=== PATIENT | male | born 1980 | race African-American/Black ===

== ENCOUNTER 2017-05-03 08:47 | Emergency (ER) | payer OTHER ==
[2017-05-03] MEDS ORDERED: Ibuprofen 800 MG TAB ONE (09:01)
--- NOTE | 2017-05-03 11:51 | RAD ---
TWO VIEW CHEST: COMPARISON: No prior comparison. INDICATION: Cough. FINDINGS: There is no consolidation, effusion, or pneumothorax. Cardiac silhouette is normal in size. Osseou s structures intact. IMPRESSION: No focal consolidation. POS: [facility]
== END 2017-05-03 09:36 | disposition home or self-care (01) ==
LOC: NAV ERS 08:47
DX: J06.9 Acute upper respiratory infection, unspecified (principal); F17.210 Nicotine dependence, cigarettes, uncomplicated
CPT/HCPCS: 71020